=== PATIENT | female | born 1970 | race Caucasian/White ===

== ENCOUNTER → 2018-02-22 | Outpatient (CLI) | payer OTHER ==
[~2018-02-22] MED LIST: BUPR100ER PO; IBUP800 PO; LEVSOD100 PO
[2018-03-01 16:09] LABS: COTININE None Detected (.); NICOTINE None Detected (.)
== END | disposition home or self-care (01) ==
LOC: LAB EV 09:00 → LAB SHORT 09:00
PROVIDERS: Physician Assistant
DX: Z01.812 Encounter for preprocedural laboratory examination (principal)
CPT/HCPCS: G0480

== ENCOUNTER → 2018-03-01 | Outpatient (CLI) | payer OTHER | END | disposition home or self-care (01) | LOC: LAB SHORT 13:19 → LAB 13:19 | DX: K27.9 Peptic ulcer, site unspecified, unspecified as acute or chronic, without hemorrhage or perforation (principal) | CPT/HCPCS: 87338 ==

== ENCOUNTER 2020-05-17 10:47 | Emergency (ER) | payer OTHER ==
[~2020-05-17] VITALS: Ht 177.8 cm; Wt 97.5 kg
[2020-05-17] MEDS ORDERED: ONDA4ODT MM (12:59)
== END 2020-05-17 13:11 | disposition home or self-care (01) ==
LOC: ER 10:47
DX: S06.9X9A Unspecified intracranial injury with loss of consciousness of unspecified duration, initial encounter (principal); S00.11XA Contusion of right eyelid and periocular area, initial encounter; R07.81 Pleurodynia; Z79.899 Other long term (current) drug therapy; Y09 Assault by unspecified means
CPT/HCPCS: 70450; 70486; 71046; 72040; 99284-25

== ENCOUNTER → 2020-06-23 | Outpatient (CLI) | payer OTHER ==
[~2020-06-23] MED LIST changes: +ONDA4ODT MM
[2020-06-25 13:00] LABS: CORONAVIRUS (COVID19) CSH-NRL Negative (Negative)
== END | disposition home or self-care (01) ==
LOC: LAB EV 09:13 → LAB SHORT 09:13
PROVIDERS: Physician Assistant
DX: Z01.812 Encounter for preprocedural laboratory examination (principal); Z11.52 Encounter for screening for COVID-19
CPT/HCPCS: U0003

== ENCOUNTER → 2021-04-20 | Outpatient (CLI) | payer OTHER ==
[2021-04-21 09:43] LABS: Candida species (DNA Probe) Positive (NEGATIVE); G. vaginalis (DNA Probe) Positive (NEGATIVE); T. vaginalis (DNA Probe) Negative (NEGATIVE)
[2021-04-22 11:10] LABS: HPV 16 Negative (Negative); HPV 18 Negative (Negative); HPV OTHER HR TYPES Positive (Negative)
== END | disposition home or self-care (01) ==
LOC: LAB 12:27 → LAB SHORT 12:27
PROVIDERS: Advanced Practice Midwife
DX: Z01.419 Encounter for gynecological examination (general) (routine) without abnormal findings (principal); N76.0 Acute vaginitis
CPT/HCPCS: 87480; 87510; 87625; 87660

== ENCOUNTER → 2022-07-18 | Outpatient (CLI) | payer OTHER | LOC: LAB 08:31 → LAB SHORT 08:31 | DX: N84.1 Polyp of cervix uteri (principal) | CPT/HCPCS: 88305 ==

== ENCOUNTER → 2022-08-10 | Outpatient (CLI) | payer OTHER | LOC: LAB 08-09 13:03 → LAB SHORT 08-09 13:03 → LAB 13:02 | DX: N72 Inflammatory disease of cervix uteri (principal); N87.9 Dysplasia of cervix uteri, unspecified | CPT/HCPCS: 88305 ==

== ENCOUNTER → 2022-08-10 | Outpatient (CLI) | payer OTHER ==
[2022-08-12 05:10] LABS: CHLAMYDIA TRACHOMATIS, NAA Negative (Negative)
== END | disposition home or self-care (01) ==
LOC: LAB 12:00 → LAB SHORT 12:00
PROVIDERS: Obstetrics & Gynecology
DX: Z11.3 Encounter for screening for infections with a predominantly sexual mode of transmission (principal)
CPT/HCPCS: 87491; 87591

== ENCOUNTER → 2023-07-27 | Outpatient (CLI) | payer OTHER ==
[2023-08-03 22:00] LABS: HPV SOURCE Cervical
== END | disposition home or self-care (01) ==
LOC: LAB SHORT 14:40 → LAB 14:40
PROVIDERS: Advanced Practice Midwife
DX: Z09 Encounter for follow-up examination after completed treatment for conditions other than malignant neoplasm (principal); Z87.42 Personal history of other diseases of the female genital tract
CPT/HCPCS: G0123

== ENCOUNTER → 2024-08-25 | Outpatient (CLI) | payer OTHER ==
[2024-08-29 07:17] LABS: HPV GENOTYPE 16 BY TMA Not Detected; HPV GENOTYPE 18/45 BY TMA Not Detected; HPV HIGH RISK BY TMA Detected; HPV SOURCE Cervical; HPVG SOURCE Cervical
== END ==
LOC: LAB SHORT 11:13 → LAB 11:13
PROVIDERS: Advanced Practice Midwife
DX: Z01.419 Encounter for gynecological examination (general) (routine) without abnormal findings (principal)
CPT/HCPCS: 87624; 87625; G0123